=== PATIENT | female | born 1985 | race African-American/Black ===

== ENCOUNTER 2017-08-01 08:34 | Emergency (ER) | payer MEDICAID ==
[~2017-08-01] VITALS: Ht 172.7 cm; Wt 68.0 kg
[2017-08-01 09:29] LABS: Basophils # (auto) 0 uL; Basophils % (auto) 0.7 % (0.0-2.0); Eosinophils # (auto) 0 uL; Eosinophils % (auto) 0.9 % (0.0-7.0); Hematocrit 41.8 % (36.0-46.0); Hemoglobin 13.6 g/dL (12.2-16.2); Lymphocytes # (auto) 2.1 uL; Lymphocytes % (auto) 41.2 % (10.0-50.0); Mean Corpuscular Hemoglobin 28.6 pg (28.0-32.0); Mean Corpuscular Hgb Conc. 32.6 g/dL (32.0-36.0); Mean Corpuscular Volume 87.6 fL (80.0-100.0); Monocytes # (auto) 0.4 uL; Monocytes % (auto) 8.2 % (0.0-12.0); Neutrophils # (auto) 2.4 uL; Nucleated Red Blood Cells % 0.1 %; Platelet Count (auto) 290 10^3/uL (140-450); Red Blood Cells 4.77 10^6/uL (4.0-5.20); Red Cell Distribution Width 13.4 % (11.8-14.3)
[2017-08-01 09:46] LABS: Urine Bacteria NONE SEEN /hpf (None Seen); Urine Blood Negative /uL (Negative); Urine Mucus FEW (None Seen); Urine Specific Gravity 1.024 (1.001-1.035); Urine WBC 1 /hpf (0 - 5)
[2017-08-01 09:52] LABS: Albumin 3.5 g/dL (3.4-5.0); BUN/Creatinine Ratio 12.4; Calcium 8.6 mg/dL (8.5-10.1); Potassium 3.9 mmol/L (3.5-5.1)
[2017-08-01 09:55] LABS: Bilirubin, Total 0.4 mg/dL (0.2-1.0); Total Protein 7.6 g/dL (6.4-8.2)
[2017-08-01 11:51] VITALS: BP 116/81
== END 2017-08-01 13:39 | disposition home or self-care (01) ==
LOC: ER 08:34
DX: G56.03 Carpal tunnel syndrome, bilateral upper limbs (principal)
CPT/HCPCS: 36415; 72040; 80053; 81001; 81025; 85025

== ENCOUNTER 2023-05-04 17:39 | Emergency (ER) | payer MEDICAID ==
[~2023-05-04] VITALS: Ht 157.5 cm; Wt 66.3 kg
[2023-05-04] MEDS ORDERED: ACETAMINOPHEN 325 MG TAB PO ONE (19:15)
[2023-05-04] MEDS ORDERED: AMOXICILLIN TRIHYDRATE 250 MG CAP PO ONE (19:15)
[2023-05-04] MEDS ORDERED: AMOX500C2 PO ×4 (19:33→20:12)
[2023-05-04 20:15] VITALS: BP 123/80; PULSE 82; RESP 18; TEMP 98.2; O2SAT 99
== END 2023-05-04 20:19 | disposition home or self-care (01) ==
LOC: ER 17:39
DX: O26.892 Other specified pregnancy related conditions, second trimester (principal); K02.9 Dental caries, unspecified; K04.7 Periapical abscess without sinus; Z79.2 Long term (current) use of antibiotics; Z3A.15 15 weeks gestation of pregnancy

== ENCOUNTER 2024-06-06 20:00 | Emergency (ER) | payer SELFPAY ==
[~2024-06-06] VITALS: Ht 157.5 cm; Wt 74.5 kg
[~2024-06-06 20:00] MED LIST: AMOX500C2 PO
--- NOTE | 2024-06-06 20:46 | ED.PDOC ---
History of Present Illness HPI Comments 38 y/o F with no significant past medical history brought in by EMS from home complaining of left upper quadrant pain, nausea, vomiting and diarrhea, onset around 1400 today. Patient states pain is constant and denies any urinary symptoms. She states she is unable to keep any food or liquids down. Chief Complaint: Abdominal Pain Time Seen by MD: 20:10 Reviewed Notes: Nurses Notes, Fuel Management Handler Notes, Medications, Allergies Allergies: Coded Allergies: NO KNOWN ALLERGIES (Unverified , 08/01/17) Home Meds Active Scripts Loperamide HCl (Imodium A-D) 2 Mg Cap, 2 MG PO Q6HP PRN, #20 CAP prn diarrhea Prov:VIC HANNON MD 06/07/24 Ondansetron Odt 4MG Tab (ZOFRAN PO) 4 Mg Tb, 4 MG PO TID PRN, #30 TAB prn nausea/vomiting ODT TAB-DISSOLVE IN MOUTH, THEN SWALLOW Prov:VIC HANNON MD 06/07/24 Dicyclomine Hcl (BENTYL CAPSULE) 10 Mg Cp, 2 CAP PO Q6HP PRN, #30 CAP 11 Refills prn abdominal pain Prov:VIC HANNON MD 06/07/24 Acetaminophen (Tylenol Extra Strength) 500 Mg Tab, 1000 MG PO Q6HP PRN, #30 TAB prn fever or pain Prov:VIC HANNON MD 06/07/24 Amoxicillin Trihydrate (Amoxicillin) 500 Mg Cap, 1 CAP PO TID for 10 Days, #30 CAP Prov:PERICO STRICKLAND NP 05/04/23 Information Source: Patient, Emergency Med Personnel Mode of Arrival: EMS Severity: Moderate Timing: Hours Duration: Since onset Prehospital treatment: 12 Lead EKG, Customer Counter Associate Past Medical History PAST MEDICAL HISTORY: Denies Surgical History: Denies all surgeries EMBOSSER APPRENTICE History: No Pertinent EMBOSSER APPRENTICE History Family History Family History: Unknown Social History Smoker: Non-Smoker Alcohol: Denies ETOH Use Drugs: Denies Drug Use Lives In: Home All Other Systems: Reviewed and Negative (Comprehensive systems review obtained and negative except for what is stated in the HPI.) Physical Exam General Appearance: Mild Distress HEENT: Other (Pupils and face symmetric, dry mucous membranes) Neck: Full Range of Motion, Normal Inspection Respiratory: Lungs Clear, No Accessory Muscle Use, No Respiratory Distress, Normal Breath Sounds Cardiovascular: No Edema, No JVD, Regular Rate/Rhythm Breast Exam: Deferred Gastrointestinal: RUQ, Soft, Tenderness Genitalia: Deferred Pelvic: Deferred Rectal: Deferred Extremities: Normal inspection, Normal range of motion, Non-tender, No pedal edema Neurologic: Alert (Oriented x4), Normal Affect, Normal Mood, Other (Moves all extremities. No gross focal deficit.) Cerebellar Function: NOT DONE Reflexes: NOT DONE Skin: Dry, Normal Color, Warm Lymphatic: NOT DONE Was a procedure done? Was a procedure done?: No Differential Dx Considerations may include: Biliary tract disease, gastritis, gastroenteritis, pancreatitis, UTI, kidney stone, diverticular disease, colitis, among others X-Ray, Labs, Meds, VS Vital Signs Date Time Temp Pulse Resp B/P (MAP) Pulse Ox O2 Delivery O2 Flow Rate FiO2 06/07/24 00:13 99 17 99 Room Air* 0 21 06/07/24 00:03 89 17 127/63 06/06/24 23:33 98 19 137/99 06/06/24 23:12 98.0 87 19 134/97 (109) 97 98.0 06/06/24 20:11 98.9 90 20 134/98 (110) 95 Lab Test 06/07/24 02:55 06/06/24 20:52 Range/Units Urine Color Yellow Yellow Urine Clarity Clear Clear Urine pH 6.0 5.0-9.0 Urine Specific [place] 1.033 1.001-1.035 Urine Protein Trace H Negative Urine Ketones 3+ H Negative Urine Blood Negative Negative /uL Urine Nitrite Negative Negative Urine Bilirubin Negative Negative Urine Urobilinogen Normal Negative mg/dL Urine Leukocyte Esterase Trace Negative /uL Urine RBC 2 0 - 4 /hpf Urine Microscopic WBC 5 0-5 /HPF Urine Squamous Epithelial Cells Few <5 /hpf Urine Bacteria None seen None Seen /hpf Urine Mucus Few None Seen Urine Glucose Normal Normal mg/dL White Blood Count 13.9 H 4.4-10.8 10^3/uL Red Blood Count 5.86 H 4.0-5.20 10^6/uL Hemoglobin 16.2 12.2-16.2 g/dL Hematocrit 50.1 H 36.0-46.0 % Mean Corpuscular Volume 85.6 80.0-100.0 fL Mean Corpuscular Hemoglobin 27.7 L 28.0-32.0 pg Mean Corpuscular Hemoglobin Concent 32.4 32.0-36.0 g/dL Red Cell Distribution Width 14.3 11.8-14.3 % Platelet Count 338 140-450 10^3/uL Mean Platelet Volume 9.6 6.9-10.8 fL Neutrophils (%) (Auto) 37.0-80.0 % Lymphocytes (%) (Auto) 10.0-50.0 % Monocytes (%) (Auto) 0.0-12.0 % Basophils (%) (Auto) 0.0-2.0 % Neutrophils # (Auto) 1.6-8.6 10 ^3/uL Lymphocytes # (Auto) 0.4-5.4 10 ^3/uL Monocytes # (Auto) 0-1.3 10 ^3/uL Differential Total Cells Counted 100.0 100 Neutrophils % (Manual) 73 37.0-80.0 Band Neutrophils % (Manual) 5 Lymphocytes % (Manual) 18 10.0-50.0 Monocytes % (Manual) 4 0-12 Eosinophils % (Manual) 0 0-7 Basophils % (Manual) 0 0.0-2.0 Metamyelocytes % (manual) 0 Myelocytes % (Manual) 0 Promyelocytes % (Manual) 0 Blast Cells % (Manual) 0 Reactive Lymphocytes 0 Platelet Estimate Adequate Sodium Level 133 L 136-145 mmol/L Potassium Level 3.6 3.5-5.1 mmol/L Chloride Level 101 98-107 mmol/L Carbon Dioxide Level 21 20-31 mmol/L Anion Gap 11 5-15 Blood Urea Nitrogen 9 9-23 mg/dL Creatinine 0.91 0.550-1.02 mg/dL Glomerular Filtration Rate Calc 83 >90 mL/min BUN/Creatinine Ratio 9.9 L 10.0-20.0 Serum Glucose 152 H 74-106 mg/dL Calcium Level 10.1 8.7-10.4 mg/dL Total Bilirubin 0.8 0.2-1.0 mg/dL Aspartate Amino Transferase (AST) 26 13-40 U/L Alanine Aminotransferase (ALT) 16 7-40 U/L Alkaline Phosphatase 55 46-116 U/L Total Protein 7.8 5.7-8.2 g/dL Albumin 4.5 3.2-4.8 g/dL Lipase 33 12-53 U/L Beta HCG, Quantitative 0.5 L 1.5-4.2 mIU/mL Current Medications Medications (Trade) Dose Ordered Sig/Erin Route Start Time Stop Time Status Last Admin Sodium Chloride 2,000 ml @ 1,000 mls/hr Q2H ONCE IV 06/06/24 20:15 06/06/24 22:14 DC 06/06/24 23:34 Ondansetron HCl (Zofran) 4 mg ONCE ONCE IV 06/06/24 20:15 06/06/24 20:16 DC 06/06/24 23:34 Morphine Sulfate 4 mg ONCE ONCE IV 06/06/24 20:15 06/06/24 20:16 DC 06/06/24 23:33 Pantoprazole Sodium (Protonix) 40 mg ONCE ONCE IV 06/06/24 20:15 06/06/24 20:16 DC 06/06/24 23:34 Ketorolac Tromethamine (Toradol Injection) 30 mg ONCE ONCE IV 06/07/24 02:15 06/07/24 02:16 DC 06/07/24 03:34 Ondansetron HCl (Zofran) 4 mg ONCE ONCE IV 06/07/24 02:15 06/07/24 02:16 DC 06/07/24 03:35 PROCEDURE(s): ABPL - CT AB PEL WO CON-NO ORAL OR IV REASON: LUQ pain n/v/d ORDER NUMBER(s): [id number], ACCESSION NUMBER(s): [id number] Exam: CT CT AB PEL WO CON-NO ORAL OR IV History: LUQ pain n/v/d Comparison Study: None available at time of dictation. Technique: Multidetector spiral CT of the abdomen was performed from lung bases to pubic symphysis. Imaging was performed without IV contrast. Axial, coronal and sagittal multiplanar reformats were obtained from the axial data set by the technologist. Radiation Dose : 1. Abdomen/Pelvis: CTDIvol 9.32 mGy, DLP 470.98 mGy*cm. Findings: Evaluation of solid organs is limited due to lack of intravenous contrast use. Lung Bases: No acute or significant lung base finding. Normal heart size. No pleural or pericardial effusion. Liver: The liver is normal in size. No focal lesions. Gallbladder and Biliary Tree: Unremarkable Spleen: Unremarkable Pancreas: The pancreas is grossly normal in appearance. Adrenal Glands: Unremarkable Kidneys: Kidneys are grossly normal without calculi or hydronephrosis. Bladder: Grossly unremarkable for degree of distention. Bowel: The stomach is grossly normal in appearance. Nondistended fluid-filled loops of small bowel. The appendix is not visualized; however, no secondary findings of acute appendicitis identified. Ascites: Absent Lymphadenopathy: No mesenteric, retroperitoneal or periportal lymphadenopathy. Abdominal Wall and Mesentery: Unremarkable. Vasculature: The visualized abdominal aorta is normal in size and caliber. Evaluation of abdominal and pelvic vessels is limited due to lack of intravenous contrast. Pelvic Organs: Small free fluid in the pelvis Musculoskeletal: No aggressive focal bony lesions, acute fractures or dislocation. Bilateral breast implants. IMPRESSION: No acute abdominal or pelvic findings. Nondistended fluid-filled loops of small bowel which can be seen with viral enteritis. Small amount of free fluid in the pelvis which is most likely physiologic. END IMPRESSION: X-Ray, Labs, Meds, VS Comment 38-year-old female with no significant past medical history complaining of right upper quadrant pain, nausea, vomiting and diarrhea Vitals remarkable for BP 134/98 Exam remarkable for right upper quadrant tenderness to palpation. No Andujar's sign. Rhythm strip independently interpreted by me: Sinus rhythm, rate 90, no ectopy. CT abdomen and pelvis IMPRESSION: No acute abdominal or pelvic findings. Nondistended fluid-filled loops of small bowel which can be seen with viral enteritis. Small amount of free fluid in the pelvis which is most likely physiologic. CBC remarkable for WBC 13.9, metabolic panel remarkable for sodium 133, hCG negative, lipase normal , UA unremarkable Patient treated with the following in the ED: 1 L 0.9 normal saline IV bolus, morphine 4 mg IV, Zofran 4 mg IV, Protonix 40 mg IV On re-evaluation, patient states symptoms have improved. Vitals are stable, repeat abdominal exam is benign, and patient tolerated p.o. fluids Hospitalization was considered, however patient had rapid improvement of symptoms with treatment in the ED, and I no longer feel hospitalization is necessary. Patient now appears stable for discharge with close outpatient follow-up with her primary physician. Rx Tylenol, Zofran, Imodium Time of 1ST Reevaluation: 20:40 Reevaluation 1ST: Unchanged Patient Education/Counseling: Diagnosis, Treatment Family Education/Counseling: No Family Present Additional Information - I reviewed the following notes from patient's past medical encounters: Hospital admission discharge summary report 09/13/23 - The following tests were ordered, and results were reviewed by me: CT abdomen/pelvis w/o contrast, UA, lipase, BetaQuant, CMP, CBC - Additional information was gathered from interviewing the following independent Historian: EMT - I reviewed and agreed with the following test results read by other provider: CT abdomen/pelvis w/o contrast - I discussed treatments and results with medical personnel Departure 1 Departure Time of Disposition: 00:35 Impression: Primary Impression: Abdominal pain Qualified Codes: R10.11 - Right upper quadrant pain Additional Impression: Vomiting and diarrhea Disposition: HOME / SELF CARE / HOMELESS Condition: Stable Additional Instructions: Your blood tests showed an elevated white blood cell count and low sodium, but were otherwise normal. Your urine test did not show an infection. These are findings that are likely due to vomiting and diarrhea. Your CT scan was consistent with a viral intestinal illness. I have prescribed medication to treat your symptoms. Follow-up with your primary doctor in 1-2 days and return to ER for persistent or worsening symptoms. e-Prescriptions Loperamide HCl (Imodium A-D) 2 Mg Cap 2 MG PO Q6HP PRN, #20 CAP prn diarrhea Prov: VIC HANNON MD 06/07/24 Ondansetron Odt 4MG Tab (ZOFRAN PO) 4 Mg Tb 4 MG PO TID PRN, #30 TAB prn nausea/vomiting ODT TAB-DISSOLVE IN MOUTH, THEN SWALLOW Prov: VIC HANNON MD 06/07/24 Dicyclomine Hcl (BENTYL CAPSULE) 10 Mg Cp 2 CAP PO Q6HP PRN, #30 CAP 11 Refills prn abdominal pain Prov: VIC HANNON MD 06/07/24 Acetaminophen (Tylenol Extra Strength) 500 Mg Tab 1000 MG PO Q6HP PRN, #30 TAB prn fever or pain Prov: VIC HANNON MD 06/07/24 Discharged With: Relative Critical Care Note Critical Care Time?: No Stability Stability form required: No Heart Score Heart Score: Heart Score Response (Comments) Value History N/A 0 EKG N/A 0 Age N/A 0 Risk Factors N/A 0 Troponin N/A 0 Total 0 I personally scribed for VIC HANNON MD ([facility] on 06/06/24 at 20:46. Electronically submitted by Rudi Magana ([email or web address]). I personally scribed for VIC HANNON MD ([email or web address]) on 06/07/24 at 00:51. Electronically submitted by Rudi Magana ([email or web address]). I personally scribed for VIC HANNON MD ([email or web address]) on 06/07/24 at 01:51. Electronically submitted by Rudi Magana ([email or web address]). VIC HANNON MD Jun 06, 2024 20:46
[2024-06-06 21:42] LABS: Hematocrit 50.1 % (36.0-46.0); Hemoglobin 16.2 g/dL (12.2-16.2); Mean Corpuscular Hemoglobin 27.7 pg (28.0-32.0); Mean Corpuscular Hgb Conc. 32.4 g/dL (32.0-36.0); Mean Corpuscular Volume 85.6 fL (80.0-100.0); Platelet Count (auto) 338 10^3/uL (140-450); Red Blood Cells 5.86 10^6/uL (4.0-5.20); Red Cell Distribution Width 14.3 % (11.8-14.3); White Blood Cell 13.9 10^3/uL (4.4-10.8)
[2024-06-06 21:46] LABS: Basophils % (manual) 0 (0.0-2.0); Blast Cells 0; Eosinophils % (manual) 0 (0-7); Metamyelocytes % 0; Myelocytes % 0; Promyelocytes % 0; Reactive Lymphocytes 0
[2024-06-06 21:58] LABS: Alanine Aminotransferase 16 U/L (7-40); Alkaline Phosphatase 55 U/L (46-116); Calcium 10.1 mg/dL (8.7-10.4); Carbon Dioxide 21 mmol/L (20-31); Chloride 101 mmol/L (98-107); Lipase 33 U/L (12-53); Potassium 3.6 mmol/L (3.5-5.1)
[2024-06-06 21:59] LABS: Albumin 4.5 g/dL (3.2-4.8); Anion Gap 11 (5-15); Aspartate Aminotransferase 26 U/L (13-40); BUN/Creatinine Ratio 9.9 (10.0-20.0); Bilirubin, Total 0.8 mg/dL (0.2-1.0); Blood Urea Nitrogen 9 mg/dL (9-23); Total Protein 7.8 g/dL (5.7-8.2)
[2024-06-06 22:01] LABS: Glucose 152 mg/dL (74-106); Sodium 133 mmol/L (136-145)
[2024-06-06 22:27] LABS: Band Neutrophils % (manual) 5; Lymphocytes % (manual) 18 (10.0-50.0); Monocytes % (manual) 4 (0-12); Platelet Estimate Adequate
[2024-06-06] MEDS: MORPHINE SULFATE 4 MG/ML SYR/VIAL IV ONE (23:33)
[2024-06-06] MEDS: ONDANSETRON HCL 4 MG/2 ML VIAL IV ONE (23:34)
[2024-06-06] MEDS: PANTOPRAZOLE 40 MG/10 ML VIAL INJ IV ONE (23:34)
[2024-06-06] MEDS: SODIUM CHLORIDE 0.9% 2,000 ML IV ONE (23:34)
[2024-06-07 00:13] VITALS: PULSE 99; RESP 17; O2SAT 99
--- NOTE | 2024-06-07 00:16 | DVH ---
Exam: CT CT AB PEL WO CON-NO ORAL OR IV History: LUQ pain n/v/d Comparison Study: None available at time of dictation. Technique: Multidetector spiral CT of the abdomen was performed from lung bases to pubic symphysis. I maging was performed without IV contrast. Axial, coronal and sagittal multiplanar reformats were obta ined from the axial data set by the technologist. Radiation Dose : 1. Abdomen/Pelvis: CTDIvol 9.32 mGy, DLP 470.98 mGy*cm. Findings: Evaluation of solid organs is limited due to lack of intravenous contrast use. Lung Bases: No acute or significant lung base finding. Normal heart size. No pleural or pericardial effusion. Liver: The liver is normal in size. No focal lesions. Gallbladder and Biliary Tree: Unremarkable Spleen: Unremarkable Pancreas: The pancreas is grossly normal in appearance. Adrenal Glands: Unremarkable Kidneys: Kidneys are grossly normal without calculi or hydronephrosis. Bladder: Grossly unremarkable for degree of distention. Bowel: The stomach is grossly normal in appearance. Nondistended fluid-filled loops of small bowel. T he appendix is not visualized; however, no secondary findings of acute appendicitis identified. Ascites: Absent Lymphadenopathy: No mesenteric, retroperitoneal or periportal lymphadenopathy. Abdominal Wall and Mesentery: Unremarkable. Vasculature: The visualized abdominal aorta is normal in size and caliber. Evaluation of abdominal a nd pelvic vessels is limited due to lack of intravenous contrast. Pelvic Organs: Small free fluid in the pelvis Musculoskeletal: No aggressive focal bony lesions, acute fractures or dislocation. Bilateral breast i mplants. IMPRESSION: No acute abdominal or pelvic findings. Nondistended fluid-filled loops of small bowel which can be se en with viral enteritis. Small amount of free fluid in the pelvis which is most likely physiologic. END IMPRESSION:
[2024-06-07] MEDS ORDERED: ACET-1304 PO (00:40)
[2024-06-07] MEDS ORDERED: LOPE7.5C PO (00:40)
[2024-06-07] MEDS ORDERED: DICY10CA PO (00:40)
[2024-06-07] MEDS ORDERED: ZOFR4T PO (00:40)
[2024-06-07 03:05] LABS: Urine Bacteria None Seen /hpf (None Seen)
[2024-06-07] MEDS: KETOROLAC TROMETH 30 MG/ML 1ML VIAL IV ONE (03:34)
[2024-06-07] MEDS: ONDANSETRON HCL 4 MG/2 ML VIAL IV ONE (03:35)
[2024-06-07 04:44] LABS: Urine Blood Negative /uL (Negative); Urine Clarity Clear (Clear); Urine Color Yellow (Yellow); Urine Mucus FEW (None Seen); Urine Protein, UAD TRACE (Negative); Urine Specific Gravity 1.033 (1.001-1.035); Urine Squamous Epithelial Cell FEW /hpf (<5); Urine Urobilinogen Normal (Negative); Urine WBC 5 /HPF (0-5)
[2024-06-07 06:06] VITALS: BP 155/93; PULSE 82; RESP 19; TEMP 98.6; O2SAT 100
== END 2024-06-07 06:08 | disposition home or self-care (01) ==
LOC: EDBD 20:00 → ER 20:00
DX: R10.12 Left upper quadrant pain (principal); R11.2 Nausea with vomiting, unspecified; R19.7 Diarrhea, unspecified; Z79.2 Long term (current) use of antibiotics; Z79.899 Other long term (current) drug therapy
CPT/HCPCS: 36415; 74176; 80053; 81001; 83690; 84702; 85007; 85027; 96361; 96374; 96375; 96376; 99285; J1885; J2270; J2405; J2470; J7030